=== PATIENT | female | born 1970 | race Caucasian/White ===

== ENCOUNTER 2017-08-03 21:03 | Emergency (ER) | payer MEDICAID ==
[~2017-08-03] VITALS: Ht 172.7 cm; Wt 96.0 kg
[~2017-08-03 21:03] MED LIST: ARIP30TA7 PO; CLON0.5T4 PO; GABA300C PO; NORCO10T PO; TOPI25CA2 PO; VENL-190 PO; ZOLP12.531 PO
[2017-08-03] MEDS ORDERED: LORazepam 1 MG tablet PO ONE (21:20)
[2017-08-03] MEDS ORDERED: ATI0.5T PO (21:34)
[2017-08-03 21:58] VITALS: BP 120/80
== END 2017-08-03 21:59 | disposition home or self-care (01) ==
LOC: ER 21:04
DX: F41.0 Panic disorder [episodic paroxysmal anxiety] (principal); F32.9 Major depressive disorder, single episode, unspecified; F15.10 Other stimulant abuse, uncomplicated; Z88.6 Allergy status to analgesic agent; Z79.899 Other long term (current) drug therapy
CPT/HCPCS: 70360; 99284

== ENCOUNTER 2018-07-22 11:15 | Emergency (ER) | payer MEDICAID ==
[~2018-07-22] VITALS: Ht 172.7 cm; Wt 89.0 kg
[~2018-07-22 11:15] MED LIST changes: +ATI0.5T PO; +CLON0.5T12 PO; -CLON0.5T4 PO
[2018-07-22 11:19] VITALS: BP 157/76
[2018-07-22] MEDS ORDERED: AMOX-422 PO (12:59)
== END 2018-07-22 13:06 | disposition home or self-care (01) ==
LOC: ER 11:15
DX: J32.9 Chronic sinusitis, unspecified (principal); F15.90 Other stimulant use, unspecified, uncomplicated; Z98.890 Other specified postprocedural states; Z88.6 Allergy status to analgesic agent; Z79.2 Long term (current) use of antibiotics; Z79.899 Other long term (current) drug therapy
CPT/HCPCS: 29125; 99283

== ENCOUNTER 2018-11-16 15:21 | Emergency (ER) | payer MEDICAID ==
[~2018-11-16] VITALS: Ht 172.7 cm; Wt 80.0 kg
[2018-11-16 15:41] VITALS: BP 157/78
== END 2018-11-16 17:39 | disposition home or self-care (01) ==
LOC: ER 15:21
DX: M25.562 Pain in left knee (principal); F15.90 Other stimulant use, unspecified, uncomplicated; Z98.890 Other specified postprocedural states; Z88.8 Allergy status to other drugs, medicaments and biological substances; Z79.899 Other long term (current) drug therapy
CPT/HCPCS: 29505; 73564; 99283

== ENCOUNTER 2018-11-18 15:09 | Emergency (ER) | payer MEDICAID ==
[~2018-11-18] VITALS: Ht 172.7 cm; Wt 87.0 kg
[2018-11-18] MEDS ORDERED: acetaminophen 325mg tablet PO ONE (16:05)
[2018-11-18 17:02] VITALS: BP 138/85
== END 2018-11-18 17:08 | disposition home or self-care (01) ==
LOC: ER 15:10
DX: S69.91XA Unspecified injury of right wrist, hand and finger(s), initial encounter (principal); S69.92XA Unspecified injury of left wrist, hand and finger(s), initial encounter; S99.922A Unspecified injury of left foot, initial encounter; S99.921A Unspecified injury of right foot, initial encounter; M25.561 Pain in right knee; M25.562 Pain in left knee; F15.90 Other stimulant use, unspecified, uncomplicated; Z79.899 Other long term (current) drug therapy; Z88.6 Allergy status to analgesic agent; Z98.890 Other specified postprocedural states; W18.09XA Striking against other object with subsequent fall, initial encounter; Y93.01 Activity, walking, marching and hiking; Y92.89 Other specified places as the place of occurrence of the external cause; Y99.8 Other external cause status
CPT/HCPCS: 29505; 73130; 73630; 99284

== ENCOUNTER 2019-04-02 12:14 | Emergency (ER) | payer MEDICAID ==
[~2019-04-02] VITALS: Ht 172.7 cm; Wt 90.0 kg
[~2019-04-02 12:14] MED LIST changes: -TOPI25CA2 PO; +TOPI25CA6 PO
[2019-04-02] MEDS ORDERED: CefTRIAXone 2gm/D5W 50ml 50 ML IV ONE (12:40)
[2019-04-02] MEDS ORDERED: normal saline 1000ML IV soln IV ONE (12:40)
[2019-04-02 13:08] LABS: BASOPHILS # (AUTO) 0.1 X10'3 (0-0.2); BASOPHILS % (AUTO) 0.4 % (0-1); EOSINOPHILS % (AUTO) 0.1 % (0-6); HEMATOCRIT 33.7 % (35.0-45.0); HEMOGLOBIN 10.9 g/dl (12.0-16.0); LYMPHOCYTES # (AUTO) 1.4 X10'3 (1.1-4.8); LYMPHOCYTES % (AUTO) 9.8 % (21-51); MEAN CORPUSCULAR HEMOGLOBIN 26.8 PG (27.0-31.0); MEAN CORPUSCULAR HGB CONC 32.3 g/dL (33.0-36.5); MEAN CORPUSCULAR VOLUME 83.1 FL (78-98); MEAN PLATELET VOLUME 7.3 FL (7.4-10.4); MONOCYTES # (AUTO) 1.8 X10'3 (0-0.9); NEUTROPHILS # (AUTO) 10.9 X10'3 (1.8-7.7); NEUTROPHILS % (AUTO) 76.7 % (42-75); PLATELET COUNT 417 X10'3 (140-440); RED BLOOD COUNT 4.05 X10'6 (4.20-5.60); RED CELL DISTRIBUTION WIDTH 16.4 % (11.5-14.5); WHITE BLOOD COUNT 14.2 X10'3 (4.5-11.0)
[2019-04-02 13:21] LABS: PARTIAL THROMBOPLASTIN TIME 44 SECONDS (22-32)
[2019-04-02 13:25] LABS: URINE HCG NEGATIVE (NEG)
[2019-04-02 13:28] LABS: CLARITY,URINE CLOUDY (Clear); COLOR,URINE YELLOW (Yellow); GLUCOSE, URINE NEGATIVE (Neg); KETONES,URINE NEGATIVE (Neg); LEUKOCYTE ESTERASE ,URINE MODERATE (Neg); NITRITES, URINE POSITIVE (Neg); OCCULT BLOOD,URINE LARGE (Neg); PH,URINE 6.5 (4.8-8.0); PROTEIN,URINE 100 mg/dl (Neg)
[2019-04-02 13:29] LABS: UA COLLECTION TYPE CLN CATCH MIDSTREAM
[2019-04-02 13:31] LABS: ALANINE AMINOTRANSFERASE 44 U/L (12-78); ALBUMIN 3.3 G/DL (3.4-5.0); ALBUMIN/GLOBULIN RATIO 0.6 (1.1-1.5); ALKALINE PHOSPHATASE 116 IU/L (46-116); ANION GAP 11 (8-16); ASPARTATE AMINO TRANSFERASE 33 U/L (10-37); BILIRUBIN,TOTAL 0.7 MG/DL (0.1-1.0); BLOOD UREA NITROGEN 7 MG/DL (7-18); BUN/CREATININE RATIO 7.6 (6.6-38.0); CALCIUM 8.9 MG/DL (8.5-10.1); CHLORIDE 100 MMOL/L (99-107); CREATININE 0.92 MG/DL (0.40-0.90); GLUCOSE 104 MG/DL (70-104); MAGNESIUM 1.9 MG/DL (1.5-2.4); POTASSIUM 3.7 MMOL/L (3.5-5.1); SODIUM 137 MMOL/L (135-145); TOTAL CARBON DIOXIDE 26.4 MMOL/L (24-32); TOTAL PROTEIN 8.5 G/DL (6.4-8.2); eGFR 65 ML/MIN
[2019-04-02 13:36] LABS: BACTERIA,URINE FEW /HPF (Neg); SQUAMOUS EPITHELIAL CELL,UR MANY /LPF (FEW)
[2019-04-02 13:37] LABS: WBC CLUMPS,URINE MANY /HPF (NEGATIVE); WBC,URINE TNTC /HPF (0-4)
[2019-04-02] MEDS ORDERED: fentaNYL/PF 50MCG/1 ML 2ML syringe IV ONE (13:40)
[2019-04-02] MEDS ORDERED: ondansetron/PF 4mg/2ml inj IV ONE (13:40)
[2019-04-02] MEDS ORDERED: CEPH500C5 PO (14:24)
[2019-04-02] MEDS ORDERED: ONDA4TAB12 PO (14:25)
[2019-04-02] MEDS ORDERED: ACET-3067 PO (14:25)
[2019-04-02 15:48] VITALS: BP 142/74
== END 2019-04-02 15:51 | disposition home or self-care (01) ==
LOC: ER 12:14
DX: N10 Acute pyelonephritis (principal); F15.10 Other stimulant abuse, uncomplicated; F17.200 Nicotine dependence, unspecified, uncomplicated; Z98.890 Other specified postprocedural states; Z88.6 Allergy status to analgesic agent; Z79.899 Other long term (current) drug therapy
CPT/HCPCS: 36415; 71045; 74176; 80053; 81001; 81025; 83605; 83735; 84145; 85025; 85610; 85730; 87040; 93005; 96365; 96375; 99284; J0696; J2405; J3010; J7030; J7040

== ENCOUNTER 2020-05-22 18:22 | Inpatient (IN) | payer MEDICAID ==
[~2020-05-22] VITALS: Ht 172.7 cm; Wt 104.5 kg
[~2020-05-22 18:22] MED LIST changes: -CLON0.5T12 PO; +CLON0.5T4 PO; +ONDA4TAB12 PO
[2020-05-22] MEDS ORDERED: diphenhydrAMINE 50 mg/ml inj IV ONE (19:00)
[2020-05-22] MEDS ORDERED: normal saline 1000ML IV soln IVB ONE (19:00)
[2020-05-22] MEDS: clonazePAM 0.5mg tablet PO SCH (19:20)
--- NOTE | 2020-05-22 19:23 | NUR ---
AMINAH VERNON AND MATT HICKS CAN GET INFO ON PT PER PT
[2020-05-22 19:48] LABS: CLARITY,URINE CLEAR (Clear); COLOR,URINE YELLOW (Yellow); GLUCOSE, URINE NEGATIVE (Neg); KETONES,URINE NEGATIVE (Neg); LEUKOCYTE ESTERASE ,URINE TRACE (Neg); NITRITES, URINE NEGATIVE (Neg); OCCULT BLOOD,URINE SMALL (Neg); PROTEIN,URINE NEGATIVE (Neg)
[2020-05-22 19:55] LABS: UA COLLECTION TYPE CLN CATCH MIDSTREAM
[2020-05-22 19:59] LABS: ALANINE AMINOTRANSFERASE 22 U/L (12-78); ALBUMIN 3.2 G/DL (3.4-5.0); ALBUMIN/GLOBULIN RATIO 0.9 (1.1-1.5); ALKALINE PHOSPHATASE 87 IU/L (46-116); ANION GAP 7 (8-16); ASPARTATE AMINO TRANSFERASE 14 U/L (10-37); BILIRUBIN,TOTAL 0.3 MG/DL (0.1-1.0); BLOOD UREA NITROGEN 19 MG/DL (7-18); BUN/CREATININE RATIO 26.4 (6.6-38.0); CALCIUM 8.5 MG/DL (8.5-10.1); CHLORIDE 111 MMOL/L (99-107); CREATININE 0.72 MG/DL (0.40-0.90); GLUCOSE 122 MG/DL (70-104); POTASSIUM 4.2 MMOL/L (3.5-5.1); SODIUM 144 MMOL/L (135-145); TOTAL CARBON DIOXIDE 25.6 MMOL/L (24-32); TOTAL PROTEIN 6.9 G/DL (6.4-8.2); eGFR 86 ML/MIN
[2020-05-22 20:00] LABS: MONOCYTES # (AUTO) 0.8 X10'3 (0-0.9); MONOCYTES % (AUTO) 6.7 % (2-12)
[2020-05-22 20:02] LABS: BASOPHILS # (AUTO) 0.1 X10'3 (0-0.2); BASOPHILS % (AUTO) 0.7 % (0-1); EOSINOPHILS % (AUTO) 0.3 % (0-6); LYMPHOCYTES # (AUTO) 2.3 X10'3 (1.1-4.8); LYMPHOCYTES % (AUTO) 19.2 % (21-51); MEAN CORPUSCULAR HEMOGLOBIN 20.6 PG (27.0-31.0); MEAN CORPUSCULAR HGB CONC 28.8 g/dL (33.0-36.5); MEAN CORPUSCULAR VOLUME 71.8 FL (78-98); MEAN PLATELET VOLUME 7.8 FL (7.4-10.4); NEUTROPHILS # (AUTO) 8.7 X10'3 (1.8-7.7); NEUTROPHILS % (AUTO) 73.1 % (42-75); PLATELET COUNT 469 X10'3 (140-440); RED BLOOD COUNT 2.73 X10'6 (4.20-5.60); RED CELL DISTRIBUTION WIDTH 25.9 % (11.5-14.5); WHITE BLOOD COUNT 11.9 X10'3 (4.5-11.0)
[2020-05-22 20:03] LABS: URINE AMPHETAMINE SCREEN POSITIVE (Neg); URINE BARBITUATE SCREEN NEGATIVE (Neg); URINE BENZODIAZEPINES SCREEN POSITIVE (Neg); URINE CANNABINOID SCREEN NEGATIVE (Neg); URINE COCAINE SCREEN NEGATIVE (Neg); URINE METHADONE SCREEN NEGATIVE (Neg); URINE OPIATE SCREEN NEGATIVE (Neg); URINE PHENCYCLIDINE SCREEN NEGATIVE (Neg)
[2020-05-22 20:05] LABS: HEMATOCRIT 19.6 % (35.0-45.0); HEMOGLOBIN 5.6 g/dl (12.0-16.0)
[2020-05-22 20:08] LABS: SQUAMOUS EPITHELIAL CELL,UR MANY /LPF (FEW)
[2020-05-22 20:09] LABS: BACTERIA,URINE 2+ /HPF (Neg); RBC,URINE 0-2 /HPF (0-2)
[2020-05-22 20:11] LABS: PARTIAL THROMBOPLASTIN TIME 26 SECONDS (22-32)
[2020-05-22 20:13] LABS: C-REACTIVE PROTEIN 0.36 MG/DL (0.0-0.5); FERRITIN 2 NG/ML (8-252); LACTATE DEHYDROGENASE 179 U/L (81-234); TROPONIN I < 0.04 NG/ML (0.0-0.05)
[2020-05-22] MEDS ORDERED: pantoprazole 40 MG vial IV ONE (21:00)
[2020-05-22 21:02] LABS: ANISOCYTOSIS 3+; MICROCYTOSIS 1+; PLATELET ESTIMATE INCREASED
[2020-05-22 21:03] LABS: ELLIPTOCYTES FEW; POLYCHROMASIA FEW; STOMATOCYTES 1+
[2020-05-22 21:04] LABS: HYPOCHROMASIA 2+
[2020-05-22 21:05] LABS: LARGE PLATELETS FEW; TEAR DROP CELLS FEW
[2020-05-22] MEDS ORDERED: LORazepam 2 mg/ml vial IV ONE (21:20)
--- NOTE | 2020-05-22 21:33 | NUR ---
MD SILVA AT BEDSIDE PUTTING IN CENTRAL LINE
[2020-05-22] MEDS ORDERED: fentaNYL/PF 50MCG/1 ML 2ML syringe IV ONE (21:45)
[2020-05-22] MEDS ORDERED: ondansetron/PF 4mg/2ml inj IV ONE (21:50)
[2020-05-22] MEDS ORDERED: PANT-47 PO (23:09)
[2020-05-22] MEDS ORDERED: FERR325T28 PO (23:09)
--- NOTE | 2020-05-22 23:49 | NUR ---
blood bank called and blood specimen has to be sent out for testing and will be awhile until its avaliable to us for transfusion
[2020-05-23] VITALS (8 sets, daily range): BP systolic 116–144; BP diastolic 43–84
[2020-05-23] MEDS ORDERED: mag hydrox/Alum hydrox/simeth 30ml oral suspension PO PRN (00:30)
[2020-05-23] MEDS: normal saline 1000ml 1,000 ML IV SCH (00:30)
[2020-05-23] MEDS ORDERED: acetaminophen 325mg tablet PO PRN (00:30)
[2020-05-23] MEDS ORDERED: magnesium hydroxide 30ml (MOM) UD suspension PO PRN (00:30)
[2020-05-23] MEDS: HYDROcodone/acetaminophen 5mg/325mg tablet PO PRN ×5 (01:54→19:03)
--- NOTE | 2020-05-23 07:01 | NUR ---
BLOOD BANK CALLED,[place] JUST RECEIVE THE SPECIMEN FOR BLOOD COMPATIBILITY/TEST.
--- NOTE | 2020-05-23 07:40 | NUR ---
kristin RIVERA to brunaal patient. Addendum: 05/23/20 at 0741 by MANDY incorrect input.
--- NOTE | 2020-05-23 07:46 | NUR ---
paged Dr. Smith made aware that RN is still waiting for the prbc from [place] and that it will take a while for it to get here,rob 4 hours or until the end of the day per blood bank.
[2020-05-23] MEDS ORDERED: pantoprazole 40mg Tablet.DR PO SCH (08:00)
--- NOTE | 2020-05-23 08:01 | NUR ---
requested hospital bed from [facility].
[2020-05-23] MEDS: gabapentin 300mg capsule PO SCH ×4 (08:07→20:35)
[2020-05-23] MEDS: ferrous sulfate 325mg tablet PO SCH (08:07)
[2020-05-23] MEDS: clonazePAM 0.5mg tablet PO SCH ×2 (08:07→20:35)
--- NOTE | 2020-05-23 08:17 | NUR ---
PATIENT ASSISTED WITH TRANSFER ON A HOSPITAL BED.CALL LIGHT WITHIN REACH,BREAKFAST TRAY GIVEN.
[2020-05-23] MEDS: ondansetron/PF 4mg/2ml inj IV PRN (08:40)
[2020-05-23] MEDS ORDERED: fentaNYL/PF 50MCG/1 ML 2ML syringe IV STA (09:11)
--- NOTE | 2020-05-23 09:12 | NUR ---
paged dr. burdick twice,no response,spoke and obtained an order from Dr. Kohler for fentanyl 100mcg stat.
--- NOTE | 2020-05-23 09:34 | NUR ---
spoke to Dr. Smith given him update about delayed BT and that prn fentanyl order was obtained from Dr. nelson.
[2020-05-23] MEDS: pantoprazole 40MG/NS 100ML BAG 100 ML IV SCH ×4 (09:55→20:59)
[2020-05-23] MEDS ORDERED: potassium Cl 40MEQ/1/2NS 520ml 520 ML IV PRN (09:55)
[2020-05-23] MEDS ORDERED: magnesium 4gm in 100ml NS 100 ML IV PRN (09:55)
[2020-05-23] MEDS ORDERED: magnesium Cl slow-release 64mg tablet PO PRN (09:55)
[2020-05-23] MEDS ORDERED: potassium Cl 20 mEq SR tablet PO PRN ×2 (09:55)
--- NOTE | 2020-05-23 10:31 | NUR ---
Attempted to phone report to Ortho/Neuro, receiving RN is unavailable to take report at this time.
[2020-05-23 10:54] LABS: BASOPHILS # (AUTO) 0.1 X10'3 (0-0.2); BASOPHILS % (AUTO) 0.9 % (0-1); EOSINOPHILS % (AUTO) 0.2 % (0-6); LYMPHOCYTES # (AUTO) 1.7 X10'3 (1.1-4.8); LYMPHOCYTES % (AUTO) 18.7 % (21-51); MEAN CORPUSCULAR HEMOGLOBIN 21.5 PG (27.0-31.0); MEAN CORPUSCULAR VOLUME 71.7 FL (78-98); MEAN PLATELET VOLUME 7.6 FL (7.4-10.4); MONOCYTES # (AUTO) 0.6 X10'3 (0-0.9); MONOCYTES % (AUTO) 6.7 % (2-12); NEUTROPHILS # (AUTO) 6.7 X10'3 (1.8-7.7); NEUTROPHILS % (AUTO) 73.5 % (42-75); PLATELET COUNT 421 X10'3 (140-440); RED BLOOD COUNT 2.39 X10'6 (4.20-5.60); RED CELL DISTRIBUTION WIDTH 25.7 % (11.5-14.5); WHITE BLOOD COUNT 9.1 X10'3 (4.5-11.0)
[2020-05-23 11:04] LABS: HEMATOCRIT 17.1 % (35.0-45.0); HEMOGLOBIN 5.1 g/dl (12.0-16.0)
[2020-05-23] MEDS: CefTRIAXone/D5W-Rocephin 1gm 50 ML IV SCH (11:25)
--- NOTE | 2020-05-23 12:21 | NUR ---
PAGER ID: [phone] MESSAGE: Sumi [phone] please call me re Sole Sue. She is writhing in pain, in abdomen, dry heaving, unable to take po meds. I am concerned for her. Do we need some imaging? pt states never hurts this bad
[2020-05-23] MEDS: morphine 2 MG/ML inj. syringe IV PRN ×2 (13:59→21:52)
[2020-05-23] MEDS: sodium ferric gluc complex inj 125 MG in normal saline 100ml IV soln 90 ML IV SCH (15:51)
[2020-05-23] MEDS: LORazepam 2 mg/ml vial IV PRN (15:54)
[2020-05-23] MEDS ORDERED: iohexol 300mg/ml 100ml inj. ONE (16:22)
[2020-05-23 16:33] LABS: BASOPHILS # (AUTO) 0.1 X10'3 (0-0.2); BASOPHILS % (AUTO) 0.9 % (0-1); EOSINOPHILS % (AUTO) 0.3 % (0-6); LYMPHOCYTES # (AUTO) 1.9 X10'3 (1.1-4.8); LYMPHOCYTES % (AUTO) 13.9 % (21-51); MEAN CORPUSCULAR HEMOGLOBIN 20.5 PG (27.0-31.0); MEAN CORPUSCULAR HGB CONC 28.6 g/dL (33.0-36.5); MEAN CORPUSCULAR VOLUME 71.6 FL (78-98); MONOCYTES # (AUTO) 0.7 X10'3 (0-0.9); MONOCYTES % (AUTO) 5.2 % (2-12); NEUTROPHILS % (AUTO) 79.7 % (42-75); PLATELET COUNT 437 X10'3 (140-440); RED BLOOD COUNT 2.73 X10'6 (4.20-5.60); RED CELL DISTRIBUTION WIDTH 25.9 % (11.5-14.5); WHITE BLOOD COUNT 13.8 X10'3 (4.5-11.0)
[2020-05-23 16:41] LABS: HEMATOCRIT 19.6 % (35.0-45.0); HEMOGLOBIN 5.6 g/dl (12.0-16.0)
--- NOTE | 2020-05-23 17:05 | NUR ---
PAGER ID: [phone] MESSAGE: Sumi [phone] julee Sole BONNER received a critical h/h 5.6/19.6. Pt is c/o difficulty breathing. Sounds tight w wheezing. Vitals are stable. Can she have a RT eval and treat?
[2020-05-23] MEDS: K and/or MAG REPLACEMENT MC SCH (20:00)
[2020-05-23] MEDS ORDERED: diphenhydrAMINE 25mg capsule PO ONE (21:10)
[2020-05-23] MEDS: nicotine 14mg patch - 24hr TD SCH (21:53)
--- NOTE | 2020-05-23 22:21 | NUR ---
Patient in room ORTHO 4012. I have received report from Sumi HOWARD and had the opportunity to ask questions and assume patient care.
[2020-05-24] VITALS (19 sets, daily range): BP systolic 114–157; BP diastolic 42–92
[2020-05-24 00:49] LABS: BASOPHILS # (AUTO) 0.1 X10'3 (0-0.2); BASOPHILS % (AUTO) 1.2 % (0-1); EOSINOPHILS % (AUTO) 0.3 % (0-6); LYMPHOCYTES # (AUTO) 1.9 X10'3 (1.1-4.8); LYMPHOCYTES % (AUTO) 20.1 % (21-51); MEAN CORPUSCULAR HEMOGLOBIN 23.3 PG (27.0-31.0); MEAN CORPUSCULAR HGB CONC 30.9 g/dL (33.0-36.5); MEAN CORPUSCULAR VOLUME 75.4 FL (78-98); MEAN PLATELET VOLUME 7.9 FL (7.4-10.4); MONOCYTES # (AUTO) 0.5 X10'3 (0-0.9); MONOCYTES % (AUTO) 5.5 % (2-12); NEUTROPHILS # (AUTO) 6.8 X10'3 (1.8-7.7); NEUTROPHILS % (AUTO) 72.9 % (42-75); PLATELET COUNT 379 X10'3 (140-440); RED BLOOD COUNT 2.44 X10'6 (4.20-5.60); WHITE BLOOD COUNT 9.3 X10'3 (4.5-11.0)
[2020-05-24 00:53] LABS: HEMATOCRIT 18.4 % (35.0-45.0); HEMOGLOBIN 5.7 g/dl (12.0-16.0)
--- NOTE | 2020-05-24 01:22 | NUR ---
PAGER ID: [phone] MESSAGE: Juliana Peralta9 Pt. in [id number] Sole Sue I have a Critical H&H of 5.7 and 18.4. She is currently receiving her second unit of PRBC's. Addendum: 05/24/20 at 0125 by Juliana Carter RN aware. called back to verify how many units total the pt. was going to receive. Said to recheck H&H in the AM. Will continue to monitor pt. for any changes.
[2020-05-24 01:32] LABS: ANISOCYTOSIS 3+; ELLIPTOCYTES FEW; HYPOCHROMASIA 3+; MICROCYTOSIS 2+; PLATELET ESTIMATE NORMAL; POIKILOCYTOSIS FEW
[2020-05-24] MEDS: pantoprazole 40MG/NS 100ML BAG 100 ML IV SCH ×5 (02:08→20:56)
[2020-05-24] MEDS: HYDROcodone/acetaminophen 5mg/325mg tablet PO PRN ×3 (02:08→20:56)
[2020-05-24] MEDS: LORazepam 2 mg/ml vial IV PRN ×3 (02:22→19:11)
[2020-05-24] MEDS: morphine 2 MG/ML inj. syringe IV PRN ×3 (05:36→22:50)
--- NOTE | 2020-05-24 06:49 | NUR ---
Problems reprioritized. Patient report given, questions answered & plan of care reviewed with Cassandra HOWARD.
[2020-05-24 07:29] LABS: BASOPHILS # (AUTO) 0.1 X10'3 (0-0.2); BASOPHILS % (AUTO) 0.9 % (0-1); EOSINOPHILS % (AUTO) 0.5 % (0-6); HEMATOCRIT 24.6 % (35.0-45.0); HEMOGLOBIN 7.9 g/dl (12.0-16.0); LYMPHOCYTES # (AUTO) 1.6 X10'3 (1.1-4.8); LYMPHOCYTES % (AUTO) 17.8 % (21-51); MEAN CORPUSCULAR HEMOGLOBIN 25.2 PG (27.0-31.0); MEAN CORPUSCULAR HGB CONC 32.2 g/dL (33.0-36.5); MEAN CORPUSCULAR VOLUME 78.5 FL (78-98); MEAN PLATELET VOLUME 7.9 FL (7.4-10.4); MONOCYTES # (AUTO) 0.6 X10'3 (0-0.9); NEUTROPHILS # (AUTO) 6.5 X10'3 (1.8-7.7); NEUTROPHILS % (AUTO) 73.8 % (42-75); PLATELET COUNT 342 X10'3 (140-440); RED BLOOD COUNT 3.14 X10'6 (4.20-5.60); RED CELL DISTRIBUTION WIDTH 24.1 % (11.5-14.5); WHITE BLOOD COUNT 8.8 X10'3 (4.5-11.0)
[2020-05-24 07:51] LABS: ALANINE AMINOTRANSFERASE 19 U/L (12-78); ALBUMIN 2.9 G/DL (3.4-5.0); ALBUMIN/GLOBULIN RATIO 0.9 (1.1-1.5); ALKALINE PHOSPHATASE 81 IU/L (46-116); ANION GAP 9 (8-16); ASPARTATE AMINO TRANSFERASE 15 U/L (10-37); BILIRUBIN,TOTAL 0.6 MG/DL (0.1-1.0); BLOOD UREA NITROGEN 9 MG/DL (7-18); BUN/CREATININE RATIO 12.2 (6.6-38.0); CALCIUM 9.1 MG/DL (8.5-10.1); CHLORIDE 109 MMOL/L (99-107); CREATININE 0.74 MG/DL (0.40-0.90); GLUCOSE 78 MG/DL (70-104); MAGNESIUM 2.1 MG/DL (1.5-2.4); PHOSPHORUS 3.1 MG/DL (2.3-4.5); POTASSIUM 3.7 MMOL/L (3.5-5.1); SODIUM 142 MMOL/L (135-145); TOTAL CARBON DIOXIDE 23.6 MMOL/L (24-32); TOTAL PROTEIN 6.2 G/DL (6.4-8.2); eGFR 83 ML/MIN
[2020-05-24] MEDS: CefTRIAXone/D5W-Rocephin 1gm 50 ML IV SCH (07:51)
[2020-05-24] MEDS: nicotine 14mg patch - 24hr TD SCH (07:51)
[2020-05-24] MEDS: gabapentin 300mg capsule PO SCH ×3 (07:51→20:55)
[2020-05-24] MEDS: ferrous sulfate 325mg tablet PO SCH (07:51)
[2020-05-24] MEDS: clonazePAM 0.5mg tablet PO SCH ×2 (07:51→19:11)
[2020-05-24] MEDS: K and/or MAG REPLACEMENT MC SCH ×2 (08:00→19:11)
[2020-05-24 08:19] LABS: ANISOCYTOSIS 3+; MICROCYTOSIS 1+; PLATELET ESTIMATE NORMAL; POIKILOCYTOSIS FEW; POLYCHROMASIA 1+
[2020-05-24] MEDS: sodium ferric gluc complex inj 125 MG in normal saline 100ml IV soln 90 ML IV SCH (10:04)
--- NOTE | 2020-05-24 11:52 | NUR ---
PAGER ID: [phone] MESSAGE: [phone] Linette Whipple- patient is wheezing, can we get an inhaler or breathing tx? Thank you roxy [id number]
--- NOTE | 2020-05-24 18:24 | NUR ---
Problems reprioritized. Patient report given, questions answered & plan of care reviewed with Juliana HOWARD.
--- NOTE | 2020-05-24 18:54 | NUR ---
Patient in room ORTHO 4012. I have received report from Cassandra HOWARD and had the opportunity to ask questions and assume patient care.
[2020-05-24] MEDS: lactobacillus rhamnosus 10,000 MMU CELLS/CAPSULE PO SCH (19:10)
[2020-05-24 19:12] LABS: OCCULT BLOOD STOOL NEGATIVE (Neg)
[2020-05-24] MEDS ORDERED: diphenhydrAMINE 2%/zinc acetate cream TP PRN (23:00)
[2020-05-25] MEDS: normal saline 1000ml 1,000 ML IV SCH (00:30)
[2020-05-25] MEDS: ondansetron/PF 4mg/2ml inj IV PRN ×2 (00:45→09:48)
[2020-05-25] MEDS: pantoprazole 40MG/NS 100ML BAG 100 ML IV SCH ×3 (00:56→10:00)
[2020-05-25] MEDS: ALBUTEROL INHALER 1 PUFF/90 MCG INHALER IH PRN ×2 (00:57→05:32)
[2020-05-25] MEDS: HYDROcodone/acetaminophen 5mg/325mg tablet PO PRN ×2 (01:17→09:07)
[2020-05-25] MEDS: morphine 2 MG/ML inj. syringe IV PRN (05:15)
[2020-05-25 06:00] VITALS: BP 136/79
[2020-05-25 06:29] LABS: ALANINE AMINOTRANSFERASE 21 U/L (12-78); ALBUMIN/GLOBULIN RATIO 0.9 (1.1-1.5); ALKALINE PHOSPHATASE 82 IU/L (46-116); ANION GAP 8 (8-16); ASPARTATE AMINO TRANSFERASE 21 U/L (10-37); BILIRUBIN,TOTAL 0.5 MG/DL (0.1-1.0); BLOOD UREA NITROGEN 5 MG/DL (7-18); BUN/CREATININE RATIO 6.8 (6.6-38.0); CHLORIDE 110 MMOL/L (99-107); CREATININE 0.73 MG/DL (0.40-0.90); GLUCOSE 87 MG/DL (70-104); MAGNESIUM 2.3 MG/DL (1.5-2.4); PHOSPHORUS 3.3 MG/DL (2.3-4.5); POTASSIUM 3.6 MMOL/L (3.5-5.1); SODIUM 144 MMOL/L (135-145); TOTAL CARBON DIOXIDE 25.7 MMOL/L (24-32); TOTAL PROTEIN 6.3 G/DL (6.4-8.2); eGFR 85 ML/MIN
--- NOTE | 2020-05-25 06:36 | NUR ---
Problems reprioritized. Patient report given, questions answered & plan of care reviewed with Sumi HOWARD.
[2020-05-25 06:51] LABS: BASOPHILS # (AUTO) 0.1 X10'3 (0-0.2); BASOPHILS % (AUTO) 1.1 % (0-1); EOSINOPHILS % (AUTO) 0.5 % (0-6); HEMATOCRIT 27.8 % (35.0-45.0); LYMPHOCYTES # (AUTO) 1.3 X10'3 (1.1-4.8); MEAN CORPUSCULAR HGB CONC 32.5 g/dL (33.0-36.5); MEAN PLATELET VOLUME 8.3 FL (7.4-10.4); MONOCYTES # (AUTO) 0.6 X10'3 (0-0.9); MONOCYTES % (AUTO) 6.8 % (2-12); NEUTROPHILS # (AUTO) 6.9 X10'3 (1.8-7.7); NEUTROPHILS % (AUTO) 76.6 % (42-75); PLATELET COUNT 335 X10'3 (140-440); RED BLOOD COUNT 3.48 X10'6 (4.20-5.60); RED CELL DISTRIBUTION WIDTH 23.8 % (11.5-14.5); WHITE BLOOD COUNT 8.9 X10'3 (4.5-11.0)
[2020-05-25] MEDS: CefTRIAXone/D5W-Rocephin 1gm 50 ML IV SCH (07:38)
[2020-05-25] MEDS: ferrous sulfate 325mg tablet PO SCH (07:40)
[2020-05-25] MEDS: gabapentin 300mg capsule PO SCH ×2 (07:40→13:01)
[2020-05-25] MEDS: nicotine 14mg patch - 24hr TD SCH (07:40)
[2020-05-25] MEDS: lactobacillus rhamnosus 10,000 MMU CELLS/CAPSULE PO SCH (07:40)
[2020-05-25] MEDS: clonazePAM 0.5mg tablet PO SCH (07:40)
[2020-05-25] MEDS: K and/or MAG REPLACEMENT MC SCH (08:00)
[2020-05-25] MEDS: sodium ferric gluc complex inj 125 MG in normal saline 100ml IV soln 90 ML IV SCH (09:07)
[2020-05-25] MEDS ORDERED: FERR325T28 PO (10:45)
[2020-05-25] MEDS ORDERED: LACT1CAP26 PO (10:45)
[2020-05-25] MEDS ORDERED: ALBU8.5H8 INH (10:45)
[2020-05-25] MEDS ORDERED: PANT40TA54 PO (10:45)
[2020-05-25] MEDS ORDERED: CLON0.5T4 PO (10:45)
[2020-05-25] MEDS ORDERED: ASCO500C18 PO (10:45)
[2020-05-25] MEDS ORDERED: CLON0.252 PO (10:48)
[2020-05-25] MEDS: LORazepam 2 mg/ml vial IV PRN (11:03)
[2020-05-25 11:29] LABS: PLATELET ESTIMATE NORMAL
[2020-05-25 11:30] LABS: ANISOCYTOSIS 3+; ELLIPTOCYTES FEW; HYPOCHROMASIA 1+; POLYCHROMASIA 1+; STOMATOCYTES FEW; TEAR DROP CELLS 1+
== END 2020-05-25 14:45 | disposition home or self-care (01) | DRG 663 ==
LOC: ER 18:23 → ED HOLD 05-23 00:29 → ORTHO 4S 05-23 11:38
PROVIDERS: ADMIT Internal Medicine; ATTEND Family Medicine
PROC: 30233N1 Transfusion of Nonautologous Red Blood Cells into Peripheral Vein, Percutaneous Approach (ICD-10-PCS; principal; 2020-05-23)
DX: D64.89 Other specified anemias (principal); F12.90 Cannabis use, unspecified, uncomplicated; F15.10 Other stimulant abuse, uncomplicated; F17.200 Nicotine dependence, unspecified, uncomplicated; F31.9 Bipolar disorder, unspecified; N39.0 Urinary tract infection, site not specified; U07.1 COVID-19; Z91.19 Patient's noncompliance with other medical treatment and regimen; Z88.8 Allergy status to other drugs, medicaments and biological substances
CPT/HCPCS: 36415; 36430; 71045; 74177; 80053; 80305; 81001; 82272; 82728; 83615; 83735; 84100; 84145; 84484; 85008; 85025; 85384; 85610; 85730; 86140; 86870; 86880; 86885; 86900; 86901; 86902; 86905; 86920; 86922; 87081; 93005; 94760; 96374; 96375; 99285; C9113; G0378; J0696; J1200; J2060; J2270; J2405; J2916; J3010; J7030; P9016; Q0163; Q9967

== ENCOUNTER 2021-03-25 15:54 | Emergency (ER) | payer MEDICAID ==
[~2021-03-25] VITALS: Ht 172.7 cm; Wt 109.1 kg
[~2021-03-25 15:54] MED LIST changes: +ALBU8.5H17 INH; -ARIP30TA7 PO; +ASCO500C18 PO; -ATI0.5T PO; +CLON0.252 PO; -CLON0.5T4 PO; +LACT1CAP26 PO; -NORCO10T PO; -ONDA4TAB12 PO; +PANT40TA54 PO; -TOPI25CA6 PO; -VENL-190 PO; -ZOLP12.531 PO
[2021-03-25] MEDS ORDERED: normal saline 1000ML IV soln IV ONE (16:20)
[2021-03-25 16:58] LABS: BASOPHILS # (AUTO) 0.1 X10'3 (0-0.2); BASOPHILS % (AUTO) 0.9 % (0-1); EOSINOPHILS % (AUTO) 0.4 % (0-6); LYMPHOCYTES # (AUTO) 1.8 X10'3 (1.1-4.8); LYMPHOCYTES % (AUTO) 24.7 % (21-51); MEAN CORPUSCULAR HEMOGLOBIN 23.5 PG (27.0-31.0); MEAN CORPUSCULAR HGB CONC 31.1 g/dL (33.0-36.5); MEAN CORPUSCULAR VOLUME 75.4 FL (78-98); MEAN PLATELET VOLUME 7.9 FL (7.4-10.4); MONOCYTES # (AUTO) 0.4 X10'3 (0-0.9); MONOCYTES % (AUTO) 5.6 % (2-12); NEUTROPHILS % (AUTO) 68.4 % (42-75); PLATELET COUNT 580 X10'3 (140-440); RED BLOOD COUNT 2.55 X10'6 (4.20-5.60); RED CELL DISTRIBUTION WIDTH 24.2 % (11.5-14.5); WHITE BLOOD COUNT 7.4 X10'3 (4.5-11.0)
[2021-03-25 17:04] LABS: HEMATOCRIT 19.2 % (35.0-45.0)
[2021-03-25 17:11] LABS: ALANINE AMINOTRANSFERASE 22 U/L (12-78); ALBUMIN 3.5 G/DL (3.4-5.0); ALBUMIN/GLOBULIN RATIO 0.9 (1.1-1.5); ALKALINE PHOSPHATASE 85 IU/L (46-116); ANION GAP 12 (8-16); ASPARTATE AMINO TRANSFERASE 15 U/L (10-37); BILIRUBIN,TOTAL 0.3 MG/DL (0.1-1.0); BLOOD UREA NITROGEN 13 MG/DL (7-18); BUN/CREATININE RATIO 16.7 (6.6-38.0); CALCIUM 8.6 MG/DL (8.5-10.1); CHLORIDE 107 MMOL/L (99-107); CREATININE 0.78 MG/DL (0.40-0.90); ETHANOL < 0.010 GM/DL (0.0-0.010); GLUCOSE 88 MG/DL (70-104); POTASSIUM 4.2 MMOL/L (3.5-5.1); SODIUM 143 MMOL/L (135-145); TOTAL CARBON DIOXIDE 23.7 MMOL/L (24-32); TOTAL PROTEIN 7.2 G/DL (6.4-8.2); eGFR 78 ML/MIN
[2021-03-25 17:50] LABS: ANISOCYTOSIS 3+; MICROCYTOSIS 1+; PLATELET ESTIMATE INCREASED
[2021-03-25 17:51] LABS: ELLIPTOCYTES FEW; HYPOCHROMASIA 3+; LARGE PLATELETS FEW; POLYCHROMASIA 1+; STOMATOCYTES 1+
[2021-03-25] MEDS ORDERED: morphine 4 MG/ML inj SYRINge IV ONE (19:35)
--- NOTE | 2021-03-26 00:02 | NUR ---
LAB CALLED STATING THAT BLOOD IS COMING FROM [facility] AND WILL ARRIVE AROUND 0300. BLOOD WILL BE AVAILABLE AT AROUND 0400 ONCE LAB IS DONE WITH IT.
[2021-03-26 02:06] VITALS: BP 117/60
[2021-03-26 02:21] VITALS: BP 127/62
[2021-03-26 03:10] LABS: URINE AMPHETAMINE SCREEN POSITIVE (Neg); URINE BARBITUATE SCREEN NEGATIVE (Neg); URINE BENZODIAZEPINES SCREEN NEGATIVE (Neg); URINE CANNABINOID SCREEN POSITIVE (Neg); URINE COCAINE SCREEN NEGATIVE (Neg); URINE METHADONE SCREEN NEGATIVE (Neg); URINE OPIATE SCREEN POSITIVE (Neg); URINE PHENCYCLIDINE SCREEN NEGATIVE (Neg)
[2021-03-26 03:13] LABS: CLARITY,URINE CLEAR (Clear); COLOR,URINE YELLOW (Yellow); GLUCOSE, URINE NEGATIVE (Neg); KETONES,URINE NEGATIVE (Neg); NITRITES, URINE NEGATIVE (Neg); OCCULT BLOOD,URINE NEGATIVE (Neg); PROTEIN,URINE NEGATIVE (Neg); UA COLLECTION TYPE URINAL
[2021-03-26 03:14] LABS: LEUKOCYTE ESTERASE ,URINE NEGATIVE (Neg); UROBILINOGEN,URINE 0.2 E.U/dL (0.2-1.0)
[2021-03-26 03:22] VITALS: BP 126/58
[2021-03-26 04:15] VITALS: BP 116/88
[2021-03-26 04:29] VITALS: BP 128/56
[2021-03-26 05:42] VITALS: BP 112/64
== END 2021-03-26 06:08 | disposition home or self-care (01) ==
LOC: ER 15:55
DX: D64.89 Other specified anemias (principal); R06.02 Shortness of breath; R53.1 Weakness; R51.9 Headache, unspecified; F41.9 Anxiety disorder, unspecified; F31.9 Bipolar disorder, unspecified; F15.90 Other stimulant use, unspecified, uncomplicated; Z98.890 Other specified postprocedural states; Z88.6 Allergy status to analgesic agent; Z88.8 Allergy status to other drugs, medicaments and biological substances; Z79.899 Other long term (current) drug therapy
CPT/HCPCS: 36415; 36430; 71045; 80053; 80305; 80320; 81003; 85008; 85025; 85610; 86870; 86880; 86885; 86900; 86901; 86902; 86905; 86922; 93005; 96361; 96374; 99285; J2270; J7030; P9016

== ENCOUNTER 2021-04-09 21:26 | Inpatient (IN) | payer MEDICAID ==
[~2021-04-09] VITALS: Ht 172.7 cm; Wt 109.1 kg
[2021-04-09] MEDS ORDERED: normal saline 1000ML IV soln IV ONE (22:00)
[2021-04-09] MEDS ORDERED: NICO-630 TD (22:04)
[2021-04-09 22:39] LABS: BASOPHILS # (AUTO) 0.1 X10'3 (0-0.2); BASOPHILS % (AUTO) 0.6 % (0-1); EOSINOPHILS % (AUTO) 0.2 % (0-6); LYMPHOCYTES # (AUTO) 1.6 X10'3 (1.1-4.8); LYMPHOCYTES % (AUTO) 12.5 % (21-51); MEAN CORPUSCULAR HEMOGLOBIN 23.4 PG (27.0-31.0); MEAN CORPUSCULAR HGB CONC 30.8 g/dL (33.0-36.5); MEAN PLATELET VOLUME 8.2 FL (7.4-10.4); MONOCYTES # (AUTO) 0.7 X10'3 (0-0.9); MONOCYTES % (AUTO) 5.2 % (2-12); NEUTROPHILS # (AUTO) 10.4 X10'3 (1.8-7.7); NEUTROPHILS % (AUTO) 81.5 % (42-75); PLATELET COUNT 426 X10'3 (140-440); RED BLOOD COUNT 1.75 X10'6 (4.20-5.60); RED CELL DISTRIBUTION WIDTH 24.4 % (11.5-14.5); WHITE BLOOD COUNT 12.7 X10'3 (4.5-11.0)
[2021-04-09 22:44] LABS: ALANINE AMINOTRANSFERASE 13 U/L (12-78); ALBUMIN 2.8 G/DL (3.4-5.0); ALBUMIN/GLOBULIN RATIO 0.9 (1.1-1.5); ALKALINE PHOSPHATASE 69 IU/L (46-116); ANION GAP 10 (8-16); ASPARTATE AMINO TRANSFERASE 9 U/L (10-37); BILIRUBIN,TOTAL 0.3 MG/DL (0.1-1.0); BLOOD UREA NITROGEN 12 MG/DL (7-18); CALCIUM 7.8 MG/DL (8.5-10.1); CHLORIDE 108 MMOL/L (99-107); GLUCOSE 140 MG/DL (70-104); POTASSIUM 3.7 MMOL/L (3.5-5.1); SODIUM 141 MMOL/L (135-145); TOTAL CARBON DIOXIDE 23.1 MMOL/L (24-32); TOTAL PROTEIN 5.9 G/DL (6.4-8.2); eGFR 76 ML/MIN
[2021-04-09 22:50] LABS: HEMOGLOBIN 4.1 g/dl (12.0-16.0)
[2021-04-09 22:51] LABS: HEMATOCRIT 13.3 % (35.0-45.0)
--- NOTE | 2021-04-09 22:55 | NUR ---
DR QUIROS AND PRESSER MACHINE AWARE OF PT'S CRITICAL LAB RESULTS
--- NOTE | 2021-04-09 23:14 | NUR ---
PT IS NOW ROOMED. ASSUMED CARE OF PT.
[2021-04-09] MEDS: pantoprazole 40MG/NS 100ML BAG 100 ML IV SCH (23:46)
[2021-04-09 23:58] LABS: ETHANOL < 0.010 GM/DL (0.0-0.010)
[2021-04-10] VITALS (13 sets, daily range): BP systolic 113–150; BP diastolic 58–80
[2021-04-10 00:02] LABS: ANISOCYTOSIS 3+; MICROCYTOSIS 1+; PLATELET ESTIMATE NORMAL
[2021-04-10 00:03] LABS: ELLIPTOCYTES FEW; HYPOCHROMASIA 3+; POLYCHROMASIA FEW
[2021-04-10 00:04] LABS: LARGE PLATELETS FEW
--- NOTE | 2021-04-10 00:20 | NUR ---
BLOOD BANK CALLED TO REPORT PT'S BLOOD IS TAKING A WHILE TO PREPARE PT HAS ANTIBODIES.
[2021-04-10] MEDS: pantoprazole 40MG/NS 100ML BAG 100 ML IV SCH ×3 (00:55→06:00)
[2021-04-10] MEDS ORDERED: mag hydrox/Alum hydrox/simeth 30ml oral suspension PO PRN (01:05)
[2021-04-10] MEDS ORDERED: HYDROcodone/acetaminophen 10/325mg tab PO PRN (01:05)
[2021-04-10] MEDS ORDERED: HYDROcodone/acetaminophen 5mg/325mg tablet PO PRN (01:05)
[2021-04-10] MEDS ORDERED: bisacodyl 10mg suppository rectal RC PRN (01:05)
[2021-04-10] MEDS ORDERED: ondansetron/PF 4mg/2ml inj IV PRN (01:05)
[2021-04-10] MEDS ORDERED: ondansetron 4mg rapidly disintigrating tab PO PRN (01:05)
[2021-04-10] MEDS ORDERED: morphine 2 MG/ML inj. syringe IV PRN ×2 (01:05)
[2021-04-10] MEDS ORDERED: diphenhydrAMINE 50 mg/ml inj IV PRN (01:05)
[2021-04-10] MEDS ORDERED: acetaminophen 650mg rectal suppository RC PRN (01:05)
[2021-04-10] MEDS ORDERED: acetaminophen 325mg tablet PO PRN ×2 (01:05)
[2021-04-10] MEDS ORDERED: normal saline 1000ml 1,000 ML IV SCH (01:05)
[2021-04-10] MEDS ORDERED: HYDROmorphone inj. 0.5 MG/0.5 ML DISP.SYRIN IV PRN (01:05)
[2021-04-10] MEDS ORDERED: magnesium hydroxide 30ml (MOM) UD suspension PO PRN (01:05)
[2021-04-10] MEDS ORDERED: diphenhydrAMINE 25mg capsule PO PRN (01:05)
[2021-04-10] MEDS ORDERED: albuterol 2.5 MG/3 ML nebule NEB PRN (01:25)
--- NOTE | 2021-04-10 01:47 | NUR ---
SPOKE TO DR HOLLIS. HE IS OK WITH ME SWITCHING PROTONIX DRIP TO PUSH ON THIS DOSE PT ONLY HAS ONE LINE THAT WILL BE DEDICATED FOR BLOOD TRANSFUSION. PT A DIFFICULT STICK, UNIT IS VERY BUSY
[2021-04-10] MEDS ORDERED: pantoprazole 40 MG vial IV ONE ×2 (01:50→06:55)
--- NOTE | 2021-04-10 02:23 | NUR ---
CALLED BLOOD BANK TO ASK HOW WE ARE DOING IN PREPPING BLOOD FOR PT. BLOOD BANK IS EXPECTING BLOOD FROM ANOTHER UNIT. PT REMAINS STABLE BUT HAS A HEADACHE AND IS TACHYCARDIC. BP SYSTOLIC REMAINS ABOVE 120.
[2021-04-10 02:46] LABS: MAGNESIUM 2.3 MG/DL (1.5-2.4); PHOSPHORUS 2.7 MG/DL (2.3-4.5)
--- NOTE | 2021-04-10 02:51 | NUR ---
EKG ORDER BY DR BRAND
[2021-04-10 03:15] LABS: TROPONIN I < 0.04 NG/ML (0.0-0.05)
--- NOTE | 2021-04-10 03:32 | NUR ---
BLOOD IS NOT READY YET
--- NOTE | 2021-04-10 03:33 | NUR ---
PT IS BEING HELPED BY TECH TO BEDSIDE COMMODE. FALL PRECAUTIONS.
--- NOTE | 2021-04-10 03:42 | NUR ---
PT REPORTS HEADACHE AND NAUSEA FEEL BETTER S/P MEDICATION
--- NOTE | 2021-04-10 03:57 | NUR ---
BLOOD BANK CALLED. THEY HAVE ATTEMPTED TO REACH A PATHOLOGIST UNSUCCESSFULLY. UNITS ARE STILL COMING FROM [facility]
[2021-04-10 04:06] LABS: CLARITY,URINE SLIGHTLY CLOUDY (Clear); COLOR,URINE YELLOW (Yellow); GLUCOSE, URINE NEGATIVE (Neg); KETONES,URINE NEGATIVE (Neg); LEUKOCYTE ESTERASE ,URINE NEGATIVE (Neg); NITRITES, URINE POSITIVE (Neg); OCCULT BLOOD,URINE NEGATIVE (Neg); PROTEIN,URINE NEGATIVE (Neg); UA COLLECTION TYPE CLN CATCH MIDSTREAM; UROBILINOGEN,URINE 0.2 E.U/dL (0.2-1.0)
[2021-04-10 04:14] LABS: HYALINE CASTS 0-3 /LPF (NEGATIVE); RENAL CELLS, URINE FEW /HPF; SQUAMOUS EPITHELIAL CELL,UR FEW /LPF (FEW)
[2021-04-10 04:15] LABS: BACTERIA,URINE FEW /HPF (Neg); RBC,URINE 0-2 /HPF (0-2); WBC,URINE 0-4 /HPF (0-4)
[2021-04-10 04:19] LABS: URINE AMPHETAMINE SCREEN POSITIVE (Neg); URINE BARBITUATE SCREEN NEGATIVE (Neg); URINE BENZODIAZEPINES SCREEN NEGATIVE (Neg); URINE CANNABINOID SCREEN POSITIVE (Neg); URINE COCAINE SCREEN NEGATIVE (Neg); URINE METHADONE SCREEN NEGATIVE (Neg); URINE OPIATE SCREEN NEGATIVE (Neg); URINE PHENCYCLIDINE SCREEN NEGATIVE (Neg)
--- NOTE | 2021-04-10 05:03 | NUR ---
BLOOD HAS NOT YET ARRIVED.
--- NOTE | 2021-04-10 05:17 | NUR ---
CALLED BLOOD BANK. NO NEW UPDATES
--- NOTE | 2021-04-10 05:59 | NUR ---
BLOOD HAS NOT ARRIVED YET.
--- NOTE | 2021-04-10 06:11 | NUR ---
PT IS PALE IN APPEARANCE. MEDICATED FOR HEADACHE. PT APPEARS TO BE UNCOMFORTABLE; HAS NOT SLEPT FOR MOST OF THE NIGHT. MORPHINE PROVIDED MILD RELIEF. STILL WAITING ON BLOOD TO ARRIVE FROM [place]. SPO2 100 IN RA. SINUS TACHYCARDIA THROUGHOUT NIGHT. BP WITH MAP ABOVE 70 THROUGHOUT NIGHT. PT REPORTS FEELING ANXIOUS.
--- NOTE | 2021-04-10 06:55 | NUR ---
SPOKE TO DR HOLLIS OVER THE PHONE CONCERNING PT'S DIFFICULTY TO OBTAIN LINES. PT HAS ONE GOOD LINE THAT WILL BE USED FOR BLOOD TRANSFUSION. OK WITH GIVING PT PROTONIX PUSH OVER DRIP.
[2021-04-10 07:01] LABS: PARTIAL THROMBOPLASTIN TIME 24 SECONDS (22-32)
--- NOTE | 2021-04-10 07:03 | NUR ---
STILL MONITORING PT CAREFULLY. BLOOD HAS NOT ARRIVED YET.
[2021-04-10] MEDS: docusate sod 100mg capsule PO SCH ×2 (07:27→20:00)
[2021-04-10] MEDS ORDERED: gabapentin 300mg capsule PO SCH ×2 (08:00→12:28)
[2021-04-10] MEDS ORDERED: pantoprazole 40mg Tablet.DR PO SCH (08:00)
--- NOTE | 2021-04-10 08:04 | NUR ---
STILL WAITING FOR BLOOD. PT REMAINS FEELING 'ANXIOUS'.
--- NOTE | 2021-04-10 08:24 | NUR ---
JUAN IS BRINGING 1ST UNIT OF BLOOD
[2021-04-10] MEDS ORDERED: LORazepam 0.5 MG tablet PO PRN (10:05)
--- NOTE | 2021-04-10 13:49 | NUR ---
Report given to LEE Garvin in Short Stay.
--- NOTE | 2021-04-10 14:35 | NUR ---
Patients blood would not scan in with 3 RN's trying, product barcode was not scanning, checked with Danya HOWARD on all aspects of blood product, down time form filled out, faxed to blood bank per blood bank request. Patient tolerated blood well.
--- NOTE | 2021-04-10 18:53 | NUR ---
gave report to Alexander Paez, will take patient up to floor.
--- NOTE | 2021-04-10 19:11 | NUR ---
Patient transferred to [facility] in stable condition, Alexander RN took over at bedside, all belongings taken up to floor, chart handed to viscose cellar charge hand Jean. Vitals stable.
[2021-04-10] MEDS ORDERED: temazepam 15mg capsule PO PRN (21:00)
--- NOTE | 2021-04-10 21:30 | NUR ---
Patient received on the floor in alert and responsive state, denied respiratory and physical distress on admission to the floor. Patient had got 3 units of blood at the ER for hemoglobin of 4.1. Labs were drawn on this floor, and result of hemoglobin awaited. Patient however refused her night medications, and insisted on leaving. Patient educated on repercussions of leaving, but patient insisted on leaving. Patient educated on need to know result of labs drawn before leaving, but refused, stating "My blood is always low, I`m used to it, I will be fine". MD Burns made aware, and was at bedside to speak with patient. Patient still insisted on leaving AMA. Patient signed AMA form. Vitals when patient got to the floor; 137/77; 85, 18, 98.1, 99% on room air. Vital signs on leaving the floor; 128/71, 72, 18, 97.9, 99% on room air. Patient was escorted to the first floor where she waited for a ride, denying respiratory and physical distress. IV lines taken out on the floor.
== END 2021-04-10 20:51 | disposition left against medical advice (07) | DRG 241 ==
LOC: ER 21:26 → ED HOLD 04-10 01:03 → UNDOADMIN 04-10 01:03 → ED HOLD 04-10 01:07 → PCU 3S 04-10 19:00 → ED HOLD 04-10 19:00 → UNDODISIN 04-10 20:51
PROVIDERS: ADMIT Family Medicine; ATTEND Internal Medicine
PROC: 30233N1 Transfusion of Nonautologous Red Blood Cells into Peripheral Vein, Percutaneous Approach (ICD-10-PCS; principal; 2021-04-10)
DX: K29.51 Unspecified chronic gastritis with bleeding (principal); D50.0 Iron deficiency anemia secondary to blood loss (chronic); F31.9 Bipolar disorder, unspecified; F41.9 Anxiety disorder, unspecified; F15.10 Other stimulant abuse, uncomplicated; K44.9 Diaphragmatic hernia without obstruction or gangrene; I10 Essential (primary) hypertension; Z53.29 Procedure and treatment not carried out because of patient's decision for other reasons; Z88.8 Allergy status to other drugs, medicaments and biological substances; Z79.899 Other long term (current) drug therapy; Z87.891 Personal history of nicotine dependence
CPT/HCPCS: 36415; 36430; 70450; 71045; 80053; 80305; 80320; 81001; 83735; 83880; 84100; 84484; 85008; 85025; 85610; 85730; 86870; 86880; 86885; 86900; 86901; 86902; 86905; 86920; 86922; 87088; 93005; 94760; 96360; 96361; 99281; C9113; G0378; J2270; J2405; J7030; P9016; Q0163

== ENCOUNTER 2023-02-18 21:10 | Emergency (ER) | payer MEDICAID ==
[~2023-02-18] VITALS: Ht 172.7 cm; Wt 88.0 kg
[~2023-02-18 21:10] MED LIST changes: -ASCO500C18 PO; -CLON0.252 PO; -LACT1CAP26 PO; +NICO-630 TD
[2023-02-18 21:48] VITALS: BP 161/107; PULSE 83; RESP 16; TEMP 98.5; O2SAT 98
== END 2023-02-19 00:29 | disposition left against medical advice (07) ==
LOC: ER 21:10
DX: R10.9 Unspecified abdominal pain (principal); Z53.21 Procedure and treatment not carried out due to patient leaving prior to being seen by health care provider
CPT/HCPCS: 99281

== ENCOUNTER 2024-01-10 00:48 | Emergency (ER) | payer MEDICAID ==
[~2024-01-10] VITALS: Ht 172.7 cm; Wt 100.0 kg
[2024-01-10 00:51] VITALS: BP 154/94; PULSE 120; TEMP 98.4; O2SAT 100
[2024-01-10] MEDS: DOXYCYCLINE 100MG CAPSULE PO STA (02:23)
[2024-01-10] MEDS ORDERED: DOXY-1 PO (03:03)
[2024-01-10 03:19] VITALS: RESP 18
[2024-01-10] MEDS: HYDROcodone/acetaminophen 10/325mg tab PO ONE (03:19)
[2024-01-10] MEDS: rifampin 300mg capsule PO SCH (03:20)
[2024-01-10] MEDS ORDERED: DIPH25CA83 PO (03:25)
[2024-01-10] MEDS: diphenhydrAMINE 25mg capsule PO ONE (03:37)
[2024-01-11] MEDS ORDERED: CEPH-585 PO (04:43)
[2024-01-11] MEDS ORDERED: PRED20TA PO (04:44)
== END 2024-01-10 03:40 | disposition home or self-care (01) ==
LOC: ER 00:48
DX: L03.211 Cellulitis of face (principal); T63.391A Toxic effect of venom of other spider, accidental (unintentional), initial encounter; D64.9 Anemia, unspecified; F41.9 Anxiety disorder, unspecified; F31.9 Bipolar disorder, unspecified; F15.90 Other stimulant use, unspecified, uncomplicated; Z88.8 Allergy status to other drugs, medicaments and biological substances; Z79.899 Other long term (current) drug therapy; Z79.2 Long term (current) use of antibiotics; Z98.890 Other specified postprocedural states; Y92.89 Other specified places as the place of occurrence of the external cause
CPT/HCPCS: 70450; 99284; Q0163

== ENCOUNTER 2024-01-11 02:00 | Emergency (ER) | payer MEDICAID ==
[~2024-01-11] VITALS: Ht 172.7 cm; Wt 100.0 kg
[~2024-01-11 02:00] MED LIST changes: +DIPH25CA83 PO; +DOXY-1 PO
[2024-01-11 02:02] VITALS: TEMP 99.3
[2024-01-11] MEDS: dexamethasone 4mg tablet PO ONE (03:10)
[2024-01-11] MEDS: LORazepam 1 MG tablet PO ONE ×2 (03:15→03:17)
[2024-01-11] MEDS: cephalexin 250mg capsule PO ONE (03:15)
[2024-01-11] MEDS: ondansetron 4mg rapidly disintigrating tab PO ONE (03:15)
[2024-01-11] MEDS ORDERED: CEPH-585 PO (04:43)
[2024-01-11] MEDS ORDERED: PRED20TA PO (04:44)
[2024-01-11 05:17] VITALS: BP 143/84; PULSE 114; RESP 20; O2SAT 96
== END 2024-01-11 04:50 | disposition home or self-care (01) ==
LOC: ER 02:01
DX: L03.211 Cellulitis of face (principal); F41.9 Anxiety disorder, unspecified; F15.90 Other stimulant use, unspecified, uncomplicated; Z88.8 Allergy status to other drugs, medicaments and biological substances; Z88.6 Allergy status to analgesic agent; Z79.899 Other long term (current) drug therapy; Z79.2 Long term (current) use of antibiotics
CPT/HCPCS: 93005; 99284